=== PATIENT | female | born 2000 | race Two or more races ===

== ENCOUNTER 2018-08-12 00:17 | Emergency (ER) | payer OTHER ==
[~2018-08-12] VITALS: Ht 149.9 cm; Wt 50.8 kg
[~2018-08-12 00:17] MED LIST: ALLEGRA-D1 TAB.SR . PO; CEFDINIR300 MG PO; FLONASE16 GM NS
[2018-08-12] MEDS ORDERED: CEFUROXIME500 MG PO (06:09)
[2018-08-12] MEDS ORDERED: GILPHEX TR TAB1 EACH PO (06:09)
[2018-08-12] MEDS ORDERED: NASONEX17 GM NASAL (06:09)
== END 2018-08-12 06:15 | disposition home or self-care (01) ==
LOC: ER 00:17
DX: N39.0 Urinary tract infection, site not specified (principal); R50.9 Fever, unspecified